=== PATIENT | female | born 1960 | race Caucasian/White ===

== ENCOUNTER → 2022-04-28 | Outpatient (CLI) | payer BC ==
--- NOTE | 2022-04-28 12:27 | CTL ---
EXAMINATION TYPE: CT Low Dose Lung DATE OF EXAM ORDERED: 04/28/2022 HISTORY: . Lung cancer screening CT DLP: 41.[address] CTDI: 1.2 mGy Automated exposure control for dose reduction was used. SCREENING VISIT: COMPARISON: TECHNIQUE: Low dose computed tomography scan was performed through the chest at 1 mm thick sections a nd reconstructed images in multiple planes at 1 mm and [address] DIAGNOSTIC QUALITY: Satisfactory FINDINGS: A biapical pleural-based thickening. Emphysematous changes are seen. Nodules: There is a 3 mm subpleural nodule bilateral upper lobe. Calcified nodule left upper lobe. 4 mm subpleural nodule axial image 71 Subpleural density measuring 7 mm left upper lobe. 2 mm nodule axial image 81 right upper lobe. 2 mm subpleural nodule calcified anterior segment right lower lobe axial image 255. Calcified nodule right upper lobe 2 mm image 79. Calcified nodule 2 cm superior segment left lower lobe image 120 1 mm nodule superior segment left lower lobe axial image 164. Calcified nodule right upper lobe medially image 70 measuring 2 mm. 3 mm subpleural nodule left upper lobe image 95. Assessment for lymphadenopathy limited by lack of contrast and technique with no gross pathologic dereje nopathy. No pleural effusion or pneumothorax. No focal pneumonia. Subsegmental changes anterior segment right upper lobe suggestive of atelectasis or scarring. Mild central basilar bronchiectasis. Calcification in the right hilum is only partially included with regard to the right kidney. Coronary artery dense calcification is seen. Atherosclerotic change aorta. Heart size normal. IMPRESSION: 1. COPD with multiple pulmonary nodules measuring less than a centimeter. Largest measures 6 to 7 mm left upper lobe. Some are calcified suggestive of granuloma. 2. Dense coronary artery calcification. CT LUNG RAD AND CT CHEST RECOMMENDATION: S Modifier (other clinically significant findings):
--- NOTE | 2022-04-29 09:32 | MM ---
Reason for Exam: Screening (asymptomatic). Last mammogram was performed 11 year(s) and 6 month(s) ago. Patient History: Menarche at age 11. First Full-Term at age 27. Postmenopausal. Sister had breast cancer, age 40. Risk Values: Fatuma 5 year model risk: 3.0%. NCI Lifetime model risk: 13.2%. Prior Study Comparison: 10/22/2004 Bilateral Diagnostic Mammogram, [facility]. 02/10/2009 Bilateral Screening Mammogram, [facility]. 10/30/2010 Bilateral Screening Mammogram, [facility]. Tissue Density: There are scattered fibroglandular densities. Findings: Analyzed By CAD. Asymmetry of the right breast seen on MLO view only in the posterior depth chemic arrows on this There is no suspicious group of microcalcifications or new suspicious mass in either breast. Overall Assessment: Incomplete: need additional imaging evaluation, BI-RAD 0 Management: Diagnostic Mammogram of the right breast. A clinical breast exam by your physician is recommended on an annual basis and results should be correlated with mammographic findings. [facility] will attempt to contact patient to return for supplemental views and ultrasound if indicated. Right breast posterior depth asymmetry seen on one view only. Electronically signed and approved by: Wiley Lambert DO
== END | disposition home or self-care (01) ==
LOC: RADUSWWP 09:52
PROVIDERS: ATTEND Family Medicine
DX: Z12.2 Encounter for screening for malignant neoplasm of respiratory organs (principal); I70.213 Atherosclerosis of native arteries of extremities with intermittent claudication, bilateral legs; Z87.891 Personal history of nicotine dependence; Z80.3 Family history of malignant neoplasm of breast
CPT/HCPCS: 71271; 77067; 93923

== ENCOUNTER → 2022-05-07 | Outpatient (CLI) | payer BC ==
--- NOTE | 2022-05-07 14:21 | MM ---
Reason for Exam: Additional evaluation requested from abnormal screening. Last screening mammogram was performed less than 1 month ago. Patient History: Menarche at age 11. First Full-Term at age 27. Postmenopausal. Sister had breast cancer, age 40. Risk Values: Fatuma 5 year model risk: 3.0%. NCI Lifetime model risk: 13.2%. Prior Study Comparison: 10/22/2004 Bilateral Diagnostic Mammogram, [facility]. 02/10/2009 Bilateral Screening Mammogram, [facility]. 10/30/2010 Bilateral Screening Mammogram, [facility]. 04/28/2022 Bilateral MG screening mammo w CAD, [facility]. Tissue Density: Right: The breast tissue is heterogeneously dense. This may lower the sensitivity of mammography. Findings: Analyzed By CAD. A persistent suspicious nodularity is not identified. There may be some underlying nodularity present. Ultrasound is recommended for additional evaluation. Overall Assessment: Incomplete: need additional imaging evaluation, BI-RAD 0 Management: Diagnostic Breast Ultrasound of the right breast. A clinical breast exam by your physician is recommended on an annual basis and results should be correlated with mammographic findings. This exam should not preclude additional follow-up of suspicious palpable abnormalities. Results were given to the patient verbally at the time of exam. Electronically signed and approved by: Raffy Motley D.O. Radiologis
--- NOTE | 2022-05-07 14:49 | USB ---
Reason for Exam: Additional evaluation requested from abnormal screening. Patient History: Menarche at age 11. First Full-Term at age 27. Postmenopausal. Sister had breast cancer, age 40. Risk Values: Fatuma 5 year model risk: 3.0%. NCI Lifetime model risk: 13.2%. Technique: Method: Targeted. Prior Study Comparison: 02/10/2009 Bilateral Screening Mammogram, [facility]. 10/30/2010 Bilateral Screening Mammogram, [facility]. 04/28/2022 Bilateral MG screening mammo w CAD, [facility]. Findings: The upper outer quadrant of the right breast, the axilla of the right breast and the retroareolar of the right breast were scanned. There is a 0.5 x 0.3 x 0.4 cm hypoechoic area 5 cm in the nipple 9:00 position. This may have a fatty hilum and potentially could be a lymph node. This could correlate with mammographic findings. Short-term follow-up of this in 6 months is recommended.. Overall Assessment: Probably benign, BI-RAD 3 Management: Diagnostic Mammogram of the right breast in 6 months. Diagnostic Breast Ultrasound of the right breast in 6 months. A clinical breast exam by your physician is recommended on an annual basis and results should be correlated with mammographic findings. Electronically signed and approved by: Raffy Motley D.O. Radiologis
== END | disposition home or self-care (01) ==
LOC: RADMAMWWP 13:40
PROVIDERS: ATTEND Family Medicine
DX: R92.8 Other abnormal and inconclusive findings on diagnostic imaging of breast (principal)
CPT/HCPCS: 77065

== ENCOUNTER → 2023-05-31 | Outpatient (CLI) | payer BC ==
--- NOTE | 2023-05-31 13:35 | CTL ---
EXAMINATION TYPE: CT Low Dose Lung DATE OF EXAM ORDERED: 05/31/2023 HISTORY: . Lung cancer screening CT DLP: [address] CTDI: 1.3 mGy Automated exposure control for dose reduction was used. SCREENING VISIT: COMPARISON: 04/28/2000 TECHNIQUE: Low dose computed tomography scan was performed through the chest at 1 mm thick sections a nd reconstructed images in multiple planes at 1 mm and [address] DIAGNOSTIC QUALITY: Satisfactory FINDINGS: Emphysematous changes are stable. There are multiple sub-5 mm pulmonary nodules some of which are calcified and some of which are nonca lcified. There is a stable 7 mm left upper lobe subpleural density. 5 mm calcified granuloma right lower lobe stable. Aorta normal caliber with mild atherosclerotic changes. Dense coronary artery rodding no pathologic a denopathy. Airways patent. Thyroid normal. Structures of the upper abdomen demonstrate no interval acute abnorma lity. Hypertrophic degenerative changes of the spine. Small hiatal hernia noted. No sizable pleural effusion or pneumothorax. No pleural calcifications. IMPRESSION: 1. COPD with stable multiple bilateral pulmonary nodules measuring less than a centimeter. The larges t measures 6 to 7 mm in the left upper lobe and is stable. 2. There are numerous 5 mm or less calcified and noncalcified nodules granulomas most likely etiology 3. Dense coronary artery calcification. CT LUNG RAD AND CT CHEST RECOMMENDATION: Lung-Rad 3 Probably Benign: 6 month follow-up LDCT.
== END | disposition home or self-care (01) ==
LOC: RADCTMAIN 12:45
PROVIDERS: ATTEND Family Medicine
DX: Z12.2 Encounter for screening for malignant neoplasm of respiratory organs (principal); I25.10 Atherosclerotic heart disease of native coronary artery without angina pectoris; J44.9 Chronic obstructive pulmonary disease, unspecified; F17.210 Nicotine dependence, cigarettes, uncomplicated; R91.8 Other nonspecific abnormal finding of lung field
CPT/HCPCS: 71271

== ENCOUNTER → 2023-05-31 | Outpatient (CLI) | payer BC ==
--- NOTE | 2023-06-01 13:38 | MM ---
Reason for Exam: Screening (asymptomatic). Last mammogram was performed 1 year(s) and 1 month(s) ago. Patient History: Menarche at age 11. First Full-Term at age 27. Postmenopausal. Sister had breast cancer, age 40. Risk Values: Fatuma 5 year model risk: 3.1%. NCI Lifetime model risk: 12.8%. Prior Study Comparison: 10/30/2010 Bilateral Screening Mammogram, [facility]. 04/28/2022 Bilateral MG screening mammo w CAD, [facility]. 05/07/2022 Right MG work up mamm w CAD RT, [facility]. Tissue Density: The breast tissue is heterogeneously dense. This may lower the sensitivity of mammography. Findings: Analyzed By CAD. There is no suspicious group of microcalcifications or new suspicious mass in either breast. Overall Assessment: Benign, BI-RAD 2 Management: Screening Mammogram of both breasts in 1 year. . Patient should continue monthly self-breast exams. A clinical breast exam by your physician is recommended on an annual basis. This exam should not preclude additional follow-up of suspicious palpable abnormalities. Note on Fatuma scores and lifetime risk: 1. A Fatuma score greater than 3% is considered moderate risk. If this is the case, consider specialist referral to assess eligibility for a risk reducing agent. 2. If overall lifetime risk for the development of breast cancer is 20% or higher, the patient may qualify for future screening with alternating mammogram and breast MRI. Electronically signed and approved by: Ambrose Hicks M.D. Radiologis
== END | disposition home or self-care (01) ==
LOC: RADMAMWWP 13:04
PROVIDERS: ATTEND Family Medicine
DX: Z12.31 Encounter for screening mammogram for malignant neoplasm of breast (principal); Z80.3 Family history of malignant neoplasm of breast; Z78.0 Asymptomatic menopausal state
CPT/HCPCS: 77063; 77067